=== PATIENT | male | born 1935 | race Caucasian/White ===

== ENCOUNTER 2021-04-15 10:00 | Outpatient (RCR) | payer OTHER, SELFPAY | END 2021-04-15 10:05 | disposition home or self-care (01) | LOC: PT 10:00 | PROVIDERS: Visit Provider Orthopaedic Surgery | DX: M25.561 Pain in right knee (principal); Z96.651 Presence of right artificial knee joint | CPT/HCPCS: 97010; 97014; 97110; 97112; 97140; 97163; 97164; 97530; G0283 ==

== ENCOUNTER 2021-08-14 02:58 | Emergency (ER) | payer OTHER, MEDICARE, SELFPAY ==
[2021-08-14] VITALS (12 sets, daily range): BP systolic 116–175; BP diastolic 74–101; PULSE 47–84; RESP 13–18; TEMP 36.6–36.7; O2SAT 91–98; BMI 25.8
--- NOTE | 2021-08-14 02:56 | ECG_ITS ---
APPROVED REPORT Exam: Resting ECG HR:64 bpm ECG Measurements Heart Rate 64 AXES IN 184 P 59 QRSd 125 QRS -52 QT 442 T 89 QTc 452 Conclusion SINUS RHYTHM WITH OCCASIONAL SUPRAVENTRICULAR PREMATURE COMPLEXES POSSIBLE RIGHT VENTRICULAR CONDUCTION DELAY [RSR (QR) IN V1/V2] LEFT ANTERIOR FASCICULAR BLOCK [QRS AXIS <= -45, QR IN I, RS IN II] LEFT VENTRICULAR HYPERTROPHY AND ST-T CHANGE [VOLTAGE CRITERIA PLUS ST/T ABNORMALITY] POSSIBLE SEPTAL MYOCARDIAL INFARCTION , OF INDETERMINATE AGE [30 ms Q WAVE IN V1/V2] ABNORMAL ECG UNCONFIRMED REPORT Electronically signed by : John Ann MD 08/20/2021 18:07:45
--- NOTE | 2021-08-14 03:01 | HMH.EDGENADL ---
ED Disposition Clinical Impression: NSTEMI (non-ST elevated myocardial infarction) Disposition: [facility] Condition on Discharge: Good Referrals: William Ace [Primary Care Provider] - - Critical Care Critical Care Time: No Attestation: On , the high probability of a clinically significant, sudden or life threatening deterioration of the following system(s) required my full and direct attention, intervention and personal management. The time I documented below is in addition to time spent performing reported procedures but includes the following listed in this critical care notation. Medical Decision Making - Medical Records Medical records reviewed: Yes: I reviewed the patient's medical records. - Tejinder Inquiry Pt receiving controlled substance: No Vital Signs: 08/14/21 02:58 08/14/21 03:30 08/14/21 04:03 Temperature 98.0 F Temperature Source Oral Pulse Rate 61 47 L Pulse Rate [Right] 67 Respiratory Rate 18 15 Blood Pressure 147/83 H 141/74 H Blood Pressure [Right Arm] 144/76 H Blood Pressure Mean [Right Arm] 98 02 Sat by Pulse Oximetry 98 91 L 97 08/14/21 04:35 Temperature Temperature Source Pulse Rate 68 Pulse Rate [Right] Respiratory Rate Blood Pressure 140/95 H Blood Pressure [Right Arm] Blood Pressure Mean [Right Arm] 02 Sat by Pulse Oximetry 95 - Lab Data Lab Results 08/14/21 02:58: WBC 6.2, RBC 4.20 L, Hgb 13.8 L, Hct 39.8 L, MCV 94.6 H, MCH 32.9 H, MCHC 34.8, RDW 13.8, Plt Count 200, MPV 9.6, Neut % (Auto) 47.8, Lymph % (Auto) 37.8, [place] % (Auto) 9.0, Eos % (Auto) 4.4, Baso % (Auto) 1.0, Neut # (Auto) 3.0, Lymph # (Auto) 2.3, [place] # (Auto) 0.6, Eos # (Auto) 0.3, Baso # (Auto) 0.1 08/14/21 02:58: Sodium 135 L, Potassium 3.8, Chloride 100, Carbon Dioxide 27, Anion Gap 11.8, BUN 22 H, Creatinine 1.10, Estimated Creat Clear 59, Estimated GFR 64, Est GFR ( Amer) 77, Glucose 120 H, Calcium 9.2, Troponin I < 0.01 08/14/21 02:58: D-Dimer 0.92 H 08/14/21 02:58: PT 11.7, INR 1.04 08/14/21 05:45: Troponin I 1.21 H Result diagrams: 08/14/21 02:58 08/14/21 02:58 Orders (Tests/Meds): ED MEDICATIONS Generic Name Dose Route Start Last Admin Trade Name Freq PRN Reason Stop Dose Admin Heparin Sodium/Dextrose 500 mls @ 20 mls/hr 08/14/21 06:30 Heparin 25,000 Units In D5w 500ml Premix IV 09/13/21 06:29 .Q25H JAYESH 1,000 UNITS/HR Discontinued Medications Generic Name Dose Route Start Last Admin Trade Name Freq PRN Reason Stop Dose Admin Acetaminophen 1,000 mg 08/14/21 04:09 08/14/21 04:19 Acetaminophen 500mg Tab PO 08/14/21 04:10 1,000 mg ONCE ONE Administration Aspirin 162 mg 08/14/21 03:04 08/14/21 03:08 Aspirin 81mg Chewable Tablet PO 08/14/21 03:05 162 mg ONCE ONE Administration Belladonna Alkaloids 60 ml 08/14/21 03:08 08/14/21 03:17 Gi Cocktail 60ml Udc PO 08/14/21 03:09 60 ml ONCE ONE Administration Clopidogrel Bisulfate 300 mg 08/14/21 06:26 08/14/21 06:36 Clopidogrel 300mg Tablet PO 08/14/21 06:27 300 mg ONCE ONE Administration Nitroglycerin 0.4 mg 08/14/21 03:04 Nitroglycerin 0.4mg Sl Tablet SL 08/14/21 03:05 ONCE ONE Simethicone 160 mg 08/14/21 04:07 08/14/21 04:19 Simethicone 80mg Chewable Tablet PO 08/14/21 04:08 160 mg ONCE ONE Administration ORDERS Category Date Time Status Rapid PCR Covid and Flu A/B Stat Lab 08/14/21 07:04 Ordered Troponin I Q3H Lab 08/14/21 09:15 Ordered - Radiology Data #1 Image Reviewed: Yes I have reviewed radiologist's interpretation Preliminary Findings: Normal/NAD Patient: Silvano Vo MR#: [id number] : 1935 Acct:[id number] Age/Sex: 85 / M ADM Date: 08/14/21 Loc: ER Attending Dr: Ordering Physician: Jeremy Judge MD Date of Service: 08/14/21 Procedure(s): XR chest 2V Accession Number(s): [id number] cc: Provider,R
--- NOTE | 2021-08-14 03:04 | XR_ITS ---
PROCEDURE INFORMATION: Exam: XR Chest Exam date and time: 08/14/2021 3:05 AM Age: 85 years old Clinical indication: Pain; Chest pressure; Additional info: Cp TECHNIQUE: Imaging protocol: XR of the chest. Views: 2 views. COMPARISON: No relevant prior studies available. FINDINGS: Lungs: Streaky linear opacities are noted in each lung, potentially scarring although minor atelectasis could have this appearance. No airspace disease. Pleural spaces: Unremarkable. No pleural effusion. No pneumothorax. Heart/Mediastinum: Unremarkable. No cardiomegaly. Vasculature: Tortuous aorta. Bones/joints: Unremarkable. IMPRESSION: Nonspecific linear opacities could reflect minor atelectasis or scarring. No other abnormality perceived.
--- NOTE | 2021-08-14 03:12 | PC.NURSE ---
[facility], s[facility]w supervisor [employer] Lyn, to request cardiac hx, med list, recent md note, and ekg's.
[2021-08-14 03:14] LABS: Basophils # 0.1 K/mm3 (0-0.2); Eosinophils # 0.3 K/mm3 (0.0-0.4); Eosinophils % 4.4 % (0.1-12.0); Hematocrit 39.8 % (42.0-52.0); Hemoglobin 13.8 g/dL (14.1-18.0); Lymphocytes # 2.3 K/mm3 (0.7-4.5); Lymphocytes % 37.8 % (10-50); Mean Corpuscular HGB Conc 34.8 g/dL (31.8-35.4); Mean Corpuscular Hemoglobin 32.9 pg (27.0-31.2); Mean Corpuscular Volume 94.6 fl (80-94); Mean Platelet Volume 9.6 fl (7.4-10.4); Monocytes # 0.6 K/mm3 (0.1-1.0); Neutrophils % 47.8 % (37.0-80.0); Platelet Count 200 K/mm3 (142-424); Red Cell Distribution Width 13.8 % (11.5-17.5); White Blood Count 6.2 K/mm3 (4.8-10.8)
[2021-08-14 03:18] LABS: Anion Gap 11.8 mEq/L (5-15); Blood Urea Nitrogen 22 mg/dl (9-20); Calcium 9.2 mg/dl (8.4-10.2); Carbon Dioxide 27 mmol/L (22.0-30.0); Chloride 100 mmol/L (98-107); Creatinine Clearance Estimated 59 mL/min (50-200); Estimated Glomerular Filt Rate 64 ml/min (>60); GFR (African American) 77 ML/MIN (>60); Glucose 120 mg/dl (74-100); Potassium 3.8 mmoL/L (3.5-5.1); Sodium 135 mmol/L (136-145)
[2021-08-14 03:24] LABS: D-Dimer 0.92 ug/mL (0.0-0.5)
[2021-08-14 03:36] LABS: Troponin I < 0.01 ng/ml (0.00-0.034)
[2021-08-14 06:19] LABS: Troponin I 1.21 ng/ml (0.00-0.034)
--- NOTE | 2021-08-14 06:19 | PC.NURSE ---
notified MD of elevated trop 1.21
--- NOTE | 2021-08-14 06:25 | PC.NURSE ---
Dr. Soares paged and on phone with ED at this time
--- NOTE | 2021-08-14 06:36 | PC.NURSE ---
[facility] to [facility] for bed [facility],awaiting return call
[2021-08-14 06:48] LABS: INR 1.04 (0.9-1.1); Prothrombin Time 11.7 seconds (10.1-12.5)
[2021-08-14 07:15] LABS: Coronavirus 19, PCR Not Detected (NotDetected); Influenza A, PCR Not Detected (NotDetected); Influenza B, PCR Not Detected (NotDetected)
--- NOTE | 2021-08-14 07:35 | PC.NURSE ---
[facility] returned call and [facility] accept pt and will give a bed assignment pending covid test results
--- NOTE | 2021-08-14 07:42 | PC.NURSE ---
spoke with pt and and updated them on POC [facility] the [facility]
--- NOTE | 2021-08-14 07:44 | PC.NURSE ---
[facility] called with room assignment
[2021-08-14 07:48] LABS: POC Glucose,Bedside 107 (70-110)
--- NOTE | 2021-08-14 08:02 | PC.NURSE ---
[facility] notified of transfer to [facility]
--- NOTE | 2021-08-14 08:05 | PC.NURSE ---
called report to the [facility]
--- NOTE | 2021-08-14 08:31 | PC.NURSE ---
ems at the bedside to transport [facility] to the [facility]
== END 2021-08-14 08:46 ==
PROVIDERS: Emergency Provider Student in an Organized Health Care Education/Training Program; PCP Internal Medicine
DX: R07.9 Chest pain, unspecified (principal); Z79.899 Other long term (current) drug therapy; Z20.822 Contact with and (suspected) exposure to COVID-19
CPT/HCPCS: 71046; 80048; 82962; 84484; 85025; 85378; 85610; 93005; 96374; 99285; C9803; U0003; U0005

== ENCOUNTER 2021-08-26 17:35 | Emergency (ER) | payer MEDICARE, OTHER, SELFPAY ==
[2021-08-26 17:37] VITALS: BP 154/86; PULSE 61; RESP 16; TEMP 36.6; O2SAT 98; BMI 26.3
--- NOTE | 2021-08-26 17:47 | PC.NURSE ---
ER at ; family at
[2021-08-26 18:00] VITALS: BP 164/96; PULSE 59; O2SAT 98
--- NOTE | 2021-08-26 18:00 | PC.NURSE ---
pt holding pressure family at bedside
--- NOTE | 2021-08-26 18:01 | HMH.EDDENT ---
ED Disposition Clinical Impression: Puncture wound Disposition: Home, Self-Care Condition on Discharge: Good Additional Instructions: follow up pcp, return for worse Prescriptions: Cefdinir [Omnicef 300mg Capsule] 300 mg PO BID #20 cap Transmission Status: Pending to [id number] Referrals: Provider,Referral, [Primary Care Provider] - - Critical Care Critical Care Time: No Attestation: On , the high probability of a clinically significant, sudden or life threatening deterioration of the following system(s) required my full and direct attention, intervention and personal management. The time I documented below is in addition to time spent performing reported procedures but includes the following listed in this critical care notation. Medical Decision Making - Medical Records Medical records reviewed: Yes: I reviewed the patient's medical records. - Tejinder Inquiry Pt receiving controlled substance: No Vital Signs: 08/26/21 17:37 08/26/21 18:00 08/26/21 18:30 Temperature 98 F Temperature Source Oral Pulse Rate 59 L 67 Pulse Rate [Radial] 61 Respiratory Rate 16 Blood Pressure 164/96 H 167/89 H Blood Pressure [Right Arm] 154/86 H Blood Pressure Mean 118 115 Blood Pressure Mean [Right Arm] 108 Blood Pressure Position [Right Arm] Sitting 02 Sat by Pulse Oximetry 98 98 99 Oxygen Delivery Method Room Air Medical Decision Narrative: bleeidng controlled with lido/epi injection and pressure rebleedingg 5-0absorbing plain gut x2 stitch placed Dental HPI - General Chief complaint: Dental/Oral Stated complaint: blood thinner, Cut mouth bleeding Time Seen by Provider: 08/26/21 18:01 Mode of Arrival: Ambulatory Limitations: No Limitations Description of Symptoms (Recalled from ER Triage Doc. by RN): pt states he bit his tongue approx 1 1/2 hrs ago and is unable to get it to stop bleeding. pt just started on 2 different blood thinners 1 week ago. - History of Present Illness HPI Narrative: bit tongue, bleeding on eloquis Onset (ago): minute(s) Duration: constant Severity: mild Treatment prior to arrival: none - Related Data Home Medications Medication Instructions Recorded Confirmed Finasteride [Proscar] 5 mg PO DAILY 08/14/21 08/14/21 Levothyroxine Sodium [Synthroid 137 mcg PO DAILY 08/14/21 08/14/21 137mcg (0.137mg) tablet] Terazosin HCl 10 mg PO BID 08/14/21 08/14/21 dilTIAZem HCl [Diltiazem 180mg 180 mg PO DAILY 08/14/21 08/14/21 24Hr ER Cap] Previous Rx's Medication Instructions Recorded Cefdinir [Omnicef 300mg Capsule] 300 mg PO BID #20 cap 08/26/21 Allergies Allergy/AdvReac Type Severity Reaction Status Date / Time No Known Allergies Allergy Unverified 02/21/17 14:15 [facility] History - Hepatitis A Screen Attestation statement:: This patient has been screened for Hepatitis A risk factors. ROS Obtained: Yes All systems reviewed & no additional complaints Physical Exam - General General appearance: alert, in no apparent distress - Head Head exam: atraumatic, normocephalic - Eye Eye exam: Present: normal appearance, PERRL, EOMI - ENT ENT exam: Present: other (puncture wound tongue with mild bleeding) - Respiratory Respiratory exam: Absent: respiratory distress, wheezes, stridor - Cardiovascular Cardiovascular exam: Present: regular rate, normal rhythm. Absent: bradycardia, tachycardia - Neurological Exam Neurological exam: Present: alert, oriented X3, CN II-XII intact - Skin Skin exam: Present: warm, normal color
[2021-08-26 18:30] VITALS: BP 167/89; PULSE 67; O2SAT 99
--- NOTE | 2021-08-26 18:58 | PC.NURSE ---
family at bedside
--- NOTE | 2021-08-26 19:06 | PC.NURSE ---
no active bleeding noted
[2021-08-26 19:21] VITALS: BP 130/83; PULSE 75; RESP 16; TEMP 36.6; O2SAT 98
== END 2021-08-26 19:23 | disposition home or self-care (01) ==
LOC: ER 18:10
PROVIDERS: Emergency Provider Emergency Medicine
DX: S01.532A Puncture wound without foreign body of oral cavity, initial encounter (principal)
CPT/HCPCS: 99282

== ENCOUNTER 2023-03-12 10:10 | Emergency (ER) | payer MEDICARE, OTHER, SELFPAY ==
[2023-03-12 10:40] VITALS: BP 138/84; PULSE 73; RESP 19; TEMP 36.7; O2SAT 97; BMI 28.3
--- NOTE | 2023-03-12 10:58 | EXP.UTC ---
Discharge Plan Disposition Patient Disposition: Home, Self-Care Condition: Good Prescriptions Prescriptions: New cefdinir 300 mg capsule 300 mg PO BID Qty: 20 0RF guaifenesin [Mucinex] 600 mg tablet extended release 12hr 600 mg PO BID PRN (Reason: cough) Qty: 20 0RF No Action cefdinir 300 MG capsule 300 mg PO BID Qty: 20 0RF levothyroxine 137 MCG tablet 137 mcg PO DAILY diltiazem HCl 180 MG capsule,extended release 24hr 180 mg PO DAILY terazosin 10 MG capsule 10 mg PO BID finasteride 5 MG tablet 5 mg PO DAILY Referrals Follow up/Referrals: Provider,Referral, MD [Primary Care Provider] - See instructions Activity Restrictions/Add. Instructions Additional Instructions/Restrictions: Start antibiotic today. Be sure to complete entire prescription even if feeling better Monitor temp. Tylenol every 4 hours as needed and / or ibuprofen every 6 hours as needed ( As long as your primary care physician has told you that it ok to take both. For fever/aches/pains ER if no less than 101 despite Tylenol or Motrin Humidifier/vaporizer or hot steamy shower Inhaler every 4-6 hours as needed like we discussed. If unsure how to use it, ask pharmacist to demonstrate how. Should help open airways and improve cough,wheezing, and shortness of breath Mucinex for your cough Be sure to drink lots of water. Follow up IMMEDIATELY for new or worsening of symptoms OR no noticeable improvement over the next 48-72 hours. 911 immediately for any life threatening symptoms such as chest pain or difficulty breathing Clinical Impressions Clinical Impression: Bronchitis Sinusitis Qualifiers: Sinusitis location: unspecified location Chronicity: unspecified Qualified Code(s): J32.9 - Chronic sinusitis, unspecified Instructions Patient Instructions: DI for Sinusitis, Acute Bronchitis Discharge ED Provider: Miroslava Christensen [facility] General Stated complaint: cough, congestion Mode of Arrival: Ambulatory Source of Information: Patient Limitations: No Limitations Time Seen by Provider: 03/12/23 11:03 Description of Symptoms (Recalled from Triage Doc. by RN): PATIENT C/O CONGESTION AND PRODUCTIVE COUGH X 1 WEEK HEENT Symptoms (Recalled from RN notes): Yes Resp Symptoms (Recalled from RN notes): Yes Skin Symptoms (Recalled from RN notes): No MS Symptoms (Recalled from RN notes): No Functional Status (Recalled from RN notes): WNL History of Present Illness Provider Complaint: Patient states that he started about a week ago had nasty drainage in the back of his throat and feels like it is trying to move into his chest States that he is coughing stuff up at times and everytime it is a different color States that he has been hoarse so today when he wasnt feeling any better he felt like he may need some antibiotics so he came in States that he is not allergic to anything but steriods makes him nervous and antihistamines he cant urinate so doesnt want those Related Data Home Medications Medication Instructions Recorded Confirmed diltiazem HCl 180 mg 180 mg PO DAILY High blood pressure 08/14/21 08/14/21 capsule,extended release 24 hr finasteride 5 mg tablet 5 mg PO DAILY prostate 08/14/21 08/14/21 levothyroxine 137 mcg tablet 137 mcg PO DAILY thyorid 08/14/21 08/14/21 terazosin 10 mg capsule 10 mg PO BID prostate 08/14/21 08/14/21 Previous Rx's Medication Instructions Recorded cefdinir 300 mg capsule 300 mg PO BID #20 caps 08/26/21 cefdinir 300 mg capsule 300 mg PO BID #20 caps 03/12/23 guaifenesin 600 mg tablet, 600 mg PO BID PRN cough #20 tabs 03/12/23 extended release 12 hr (Mucinex) Allergies Allergy/AdvReac Type Severity Reaction Status Date / Time No Known Allergies Allergy Unverified 02/21/17 14:15 Worker's Comp Is this a Worker's Comp case?: [facility] Dis[facility]: The information contained in this section may have been updated after the patient was seen, as this information can be updated by other users. Social History Smoking Status: Unknown if ever smoked alcohol intake: never current occupational status: retired and disabled Travel in the last 8 weeks: None ROS Obtained: Yes All systems reviewed & no additional complaints except as documented and Yes Systems reviewed as appropriate & no additional complaints except as documented Constitutional Constitutional: Reports system reviewed and no additional complaints, except as documented and Reports as per HPI ENT Ears, Nose, Mouth, and Throat: Reports system reviewed and no additional complaints, except as documented, Reports as per HPI, Reports sinus pain and Reports sinus pressure Cardiovascular Cardiovascular: Reports system reviewed and no additional complaints, except as documented and Reports as per HPI Respiratory Respiratory: Reports system reviewed and no additional complaints, except as documented, Reports as per HPI, Reports chest congestion and Reports cough Gastrointestinal Gastrointestingal: Reports system reviewed and no additional complaints, except as documented and as per HPI Genitourinary Male Genitourinary: Reports system reviewed and no additional complaints, except as documented and Reports as per HPI Physical Exam General General appearance: alert and in no apparent distress ENT ENT exam: Present mucous membranes moist Expanded ENT Exam Nose exam: Present sinus tenderness Throat exam: Present other (PND noted ) Respiratory Respiratory exam: Present normal lung sounds bilaterally; Absent respiratory distress or wheezes Cardiovascular Cardiovascular exam: Present regular rate, normal rhythm and normal heart sounds Neurological Exam Neurological exam: Present alert, oriented X3 and normal gait Medical Decision Making Tejinder Inquiry Pt receiving controlled substance: No Tejinder was queried for this patient: No Vital Signs: 03/12/23 10:40 Temperature 98.0 F Temperature Source Oral Pulse Rate [Left Brachial] 73 Respiratory Rate 19 Blood Pressure [Left Arm] 138/84 Blood Pressure Mean [Left Arm] 102 Blood Pressure Source [Left Arm] Automatic Cuff Blood Pressure Position [Left Arm] Sitting 02 Sat by Pulse Oximetry 97 Oxygen Delivery Method Room Air
[2023-03-12 11:21] VITALS: BP 138/84; PULSE 73; RESP 19; TEMP 36.7; O2SAT 97
== END 2023-03-12 11:24 | disposition home or self-care (01) ==
PROVIDERS: Emergency Provider Nurse Practitioner
DX: J20.9 Acute bronchitis, unspecified (principal); J01.90 Acute sinusitis, unspecified; R09.81 Nasal congestion; R09.82 Postnasal drip; R05.9 Cough, unspecified; R09.89 Other specified symptoms and signs involving the circulatory and respiratory systems
CPT/HCPCS: 99204; 99212; G0463

== ENCOUNTER 2023-11-03 13:22 | Emergency (ER) | payer MEDICARE, OTHER, SELFPAY ==
[2023-11-03] VITALS (11 sets, daily range): BP systolic 100–177; BP diastolic 70–96; PULSE 56–82; RESP 16–20; TEMP 36.8; O2SAT 93–98; BMI 26.5
--- NOTE | 2023-11-03 13:44 | ED_ITS ---
Discharge Plan Disposition Chief Complaint: Nausea/Vomiting/Diarrhea Prescriptions Prescriptions: No Action cefdinir 300 MG capsule 300 mg PO BID Qty: 20 0RF cefdinir 300 mg capsule 300 mg PO BID Qty: 20 0RF guaifenesin [Mucinex] 600 mg tablet extended release 12hr 600 mg PO BID PRN (Reason: cough) Qty: 20 0RF levothyroxine 137 MCG tablet 137 mcg PO DAILY diltiazem HCl 180 MG capsule,extended release 24hr 180 mg PO DAILY terazosin 10 MG capsule 10 mg PO BID finasteride 5 MG tablet 5 mg PO DAILY Clinical Impressions Clinical Impression: Nausea, Abdominal pain Instructions Patient Instructions: DI for Diarrhea and Traveler's Diarrhea -- Adult, DI for Diarrhea and Traveler's Diarrhea -- Child, DI for Nausea -- Adult, DI for Nausea -- Child Print Language Print Language: Armenian Discharge ED Provider: Quan Ambriz Adult HPI General Chief complaint: Nausea/Vomiting/Diarrhea Stated complaint: abd pain Time Seen by Provider: 11/03/23 13:44 Mode of Arrival: Wheelchair Source of Information: Patient Limitations: No Limitations Description of Symptoms (Recalled from ER Triage Doc. by RN): pt states he is very nauseated. pt states he began feeling bad this am. He denies pain but states his stomach is queasy and rumbling. pt denies any other symptoms. History of Present Illness HPI narrative: Silvano Vo is an 88M with a past medical history of hypertension, coronary artery disease and NSTEMI presenting to the emergency department for complaints of abdominal pain, nausea. Patient states that he developed abdominal bloating and periumbilical pain starting this morning with associated nausea. He has not had any vomiting. He states that he is not having any diarrhea and is having normal bowel movements without blood or dark stools. He states his last bowel movement was this morning. He reports that his and him ate the same meal last night and she is not sick. He states that nothing like this is ever happened before. He states that he has a history of appendectomy and hernia repairs in the past. Related Data Home Medications ?Medication ?Instructions ?Recorded ?Confirmed diltiazem HCl 180 mg 180 mg PO DAILY High blood pressure 08/14/21 08/14/21 capsule,extended release 24 hr finasteride 5 mg tablet 5 mg PO DAILY prostate 08/14/21 08/14/21 levothyroxine 137 mcg tablet 137 mcg PO DAILY thyorid 08/14/21 08/14/21 terazosin 10 mg capsule 10 mg PO BID prostate 08/14/21 08/14/21 Previous Rx's ?Medication ?Instructions ?Recorded cefdinir 300 mg capsule 300 mg PO BID #20 caps 08/26/21 cefdinir 300 mg capsule 300 mg PO BID #20 caps 03/12/23 guaifenesin 600 mg tablet, 600 mg PO BID PRN cough #20 tabs 03/12/23 extended release 12 hr (Mucinex) Allergies Allergy/AdvReac Type Severity Reaction Status Date / Time No Known Allergies Allergy Verified 11/03/23 13:35 [facility] Disclaimer: The information contained in this section may have been updated after the patient was seen, as this information can be updated by other users. Social History (Updated 03/12/23 @ 11:18 by Miroslava Christensen APRN) Smoking Status: Never smoker alcohol intake: never current occupational status: retired and disabled Travel in the last 8 weeks: None ROS Obtained: Yes Systems reviewed as appropriate & no additional complaints except as documented Physical Exam General General appearance: alert Comment: appears uncomfortable Head Head exam: atraumatic Eye Eye exam: Present normal appearance ENT ENT exam: Present normal external ear exam Neck Neck exam: Present full ROM Chest Chest inspection: Present symmetric chest wall rise Respiratory Respiratory exam: Present normal lung sounds bilaterally; Absent respiratory distress Cardiovascular Cardiovascular exam: Present regular rate and normal rhythm Abdominal Exam Abdominal exam: Present soft, distention and tenderness (perumbilical); Absent guarding, rebound or rigidity exam: Present deferred Extremities Exam Extremities exam: Present normal inspection Back Exam Back exam: Present normal inspection Neurological Exam Neurological exam: Present alert and oriented X3 Psychiatric Psychiatric exam: Present normal affect Skin Skin exam: Present warm and dry Medical Decision Making Medical Records Medical records reviewed: Yes I reviewed the patient's medical records. Tejinder Inquiry Pt receiving controlled substance: No Vital Signs: 11/03/23 13:29 11/03/23 13:30 11/03/23 14:00 Temperature 98.3 F Temperature Source Oral Pulse Rate 63 60 Pulse Rate [Left] 62 Respiratory Rate 16 Blood Pressure 164/87 H 152/83 H Blood Pressure [Right Arm] 172/96 H Blood Pressure Mean [Right Arm] 121 Blood Pressure Source [Right Arm] Automatic Cuff Blood Pressure Position [Right Arm] Sitting 02 Sat by Pulse Oximetry 97 96 96 Oxygen Delivery Method Room Air Room Air Room Air Lab Data Lab Results 11/03/23 13:33: WBC 9.1, RBC 4.14 L, Hgb 12.5 L, Hct 39.1 L, MCV 94.4 H, MCH 30.1, MCHC 31.9, RDW 14.5, Plt Count 316, MPV 8.8, Neut % (Auto) 77.3, Lymph % (Auto) 13.2, [place] % (Auto) 7.3, Eos % (Auto) 1.7, Baso % (Auto) 0.5, Neut # (Auto) 7.0, Lymph # (Auto) 1.2, [place] # (Auto) 0.7, Eos # (Auto) 0.2, Baso # (Auto) 0.0, Sodium 129 L, Potassium 4.3, Chloride 98, Carbon Dioxide 26, Anion Gap 9.3, BUN 17, Creatinine 1.00, Estimated Creat Clear 63, Estimated GFR 71, Est GFR ( Amer) 86, Glucose 120 H, Calcium 9.0, Total Bilirubin 0.8, AST 41, ALT 26, Alkaline Phosphatase 81, Total Protein 7.8, Albumin 4.4, Globulin 3.4 H, Albumin/Globulin Ratio 1.3, Lipase 48 11/03/23 13:45: Lactate 1.0 11/03/23 13:33 11/03/23 13:33 Orders (Tests/Meds): ED MEDICATIONS Generic Name Dose Route Start Last Admin Trade Name Freq PRN Reason Stop Dose Admin Sodium Chloride 10 ml 11/03/23 13:59 Sodium Chloride 0.9% 10ml Flush Syringe IV 12/03/23 13:58 NEEDED PRN Maintain IV Site Sodium Chloride 10 ml 11/03/23 14:32 11/03/23 14:32 Sodium Chloride 0.9% 10ml Syr (Rad Only) IV 12/03/23 14:31 10 ml NEEDED PRN Administration Maintain IV Site Discontinued Medications Generic Name Dose Route Start Last Admin Trade Name Freq PRN Reason Stop Dose Admin Acetaminophen 1,000 mg 11/03/23 14:07 11/03/23 14:10 Acetaminophen 500mg Tab PO 11/03/23 14:08 1,000 mg ONCE ONE Administration Lactated Ringer's 500 mls @ 999 mls/hr 11/03/23 14:17 Lactated Ringer's 500ml IV 11/03/23 14:47 .Q31M ONE Iopamidol 75 ml 11/03/23 14:32 11/03/23 14:32 Iopamidol-370 (76%);100ml Bottle IV 11/03/23 14:33 75 ml ONCE ONE Administration Morphine Sulfate 4 mg 11/03/23 13:52 11/03/23 14:17 Morphine 4mg/Ml Syringe IV 11/03/23 13:53 Not Given ONCE ONE Ondansetron HCl 4 mg 11/03/23 13:52 11/03/23 14:01 Ondansetron 4mg/2ml Vial IV 11/03/23 13:53 4 mg ONCE ONE Administration ORDERS Category Date Time Status CT abdomen pelvis w con Stat Cat Scan 11/03/23 13:52 Taken CBC w/Auto Diff [Complete Blood Count Auto Diff] Stat Lab 11/03/23 13:33 Completed CMP [Comprehensive Metabolic Panel] Stat Lab 11/03/23 13:33 Completed Hemoglobin A1C Stat Lab 11/03/23 13:59 Received Lactic Acid Stat Lab 11/03/23 13:45 Completed Lipase Stat Lab 11/03/23 13:33 Completed Trop I [Troponin I] Stat Lab 11/03/23 13:59 Received Troponin I Q3H Lab 11/03/23 18:15 Ordered Troponin I Q3H Lab 11/03/23 21:15 Ordered Urinalysis and Microscopic Stat Lab 11/03/23 13:52 Ordered Medical Decision Narrative: Silvano Vo is an 88y male with a past medical history of NSTEMI, hypertension presenting to the emergency department for complaints of periumbilical abdominal pain as well as nausea without vomiting. He reportedly has had normal bowel movements, last of which was this morning. No hematochezia, melena or diarrhea. Patient does feel that his abdomen is distended. Physical exam revealed a distended abdomen that is mildly tender in the periumbilical region without rigidity or guarding. Cardiopulmonary exam is unremarkable. The remainder of his exam is grossly unremarkable as well. Differential diagnosis includes, but is not limited to: SBO, acute cholecystitis, choledocholithiasis, viral gastritis, ACS, pancreatitis, urinary tract infection, among others. Patient's workup in the emergency department included: CBC, CMP, lipase, urinalysis, troponin, CT abdomen pelvis with IV contrast Patient's workup demonstrated no leukocytosis, mild hyponatremia of 129, electrolytes otherwise within normal limits, creatinine 1.0, glucose 120, troponin pending, lipase normal at 48. CT abdomen pelvis was interpreted by me prior to official radiology reads and demonstrated no acute intraabdominal findings. See final radiology report for details. At this time, patient's care was transferred to the oncoming physician, Dr. Gonzalez, pending official radiology reads. Patient's ultimate disposition is to be determined by the oncoming provider after reassessment, troponin, and radiology reads. He remained hemodynamically stable and was appropriate for transfer of care at this time. Critical Care Critical Care Time Critical Care Time: No
--- NOTE | 2023-11-03 13:52 | CT_ITS ---
FINAL REPORT TECHNIQUE: Postcontrast axial images through the abdomen and pelvis were performed. This study was performed with techniques to keep radiation doses as low as reasonably achievable, (ALARA). Individualized dose reduction techniques using automated exposure control or adjustment of mA and/or kV according to the patient's size were employed. CLINICAL HISTORY: periumbilical pain, distended. Concern for SBO FINDINGS: Abdomen: There is chronic scarring at the lung bases. There is mild fatty infiltration of the liver. The gallbladder is present. The spleen and pancreas are unremarkable. There is a small nodule in the left adrenal gland measuring approximately 10 mm and likely represents an adrenal adenoma. The right adrenal gland is unremarkable. The kidneys are unremarkable. Pelvis: There is extensive mucosal thickening of the ascending colon and at the ileocecal valve. There is abnormal dilation of the distal small bowel with associated bacterial overgrowth measuring 3.2 cm in diameter. There appears to be partial small bowel obstruction. The prostate is enlarged and heterogeneous measuring 7.4 cm in diameter. There are postoperative changes from inguinal hernia repair bilaterally. IMPRESSION: Abnormal mucosal thickening of the cecum, ileocecal valve and ascending colon. It is unclear if this is inflammatory or neoplastic but appears to result in a partial small bowel obstruction at the ileocecal valve. Lower endoscopy is recommended with attention to the ileocecal valve. Reviewed, Interpreted and Dictated by Pedro Pablo Perez MD Transcribed by Leesa Hernandez Authenticated and [facility]
[2023-11-03] MEDS: ONDANSETRON 4MG/2ML VIAL 4 MG IV ×2 (14:01→22:52)
[2023-11-03 14:03] LABS: Albumin Level 4.4 g/dl (3.5-5.0); Basophils % 0.5 % (0.1-2.0); Chloride 98 mmol/L (98-107); Eosinophils # 0.2 K/mm3 (0.0-0.4); Eosinophils % 1.7 % (0.1-12.0); Hematocrit 39.1 % (42.0-52.0); Hemoglobin 12.5 g/dL (14.1-18.0); Lymphocytes # 1.2 K/mm3 (0.7-4.5); Lymphocytes % 13.2 % (10-50); Mean Corpuscular HGB Conc 31.9 g/dL (31.8-35.4); Mean Corpuscular Hemoglobin 30.1 pg (27.0-31.2); Mean Corpuscular Volume 94.4 fl (80-94); Mean Platelet Volume 8.8 fl (7.4-10.4); Monocytes # 0.7 K/mm3 (0.1-1.0); Monocytes % 7.3 % (1.7-9.3); Neutrophils % 77.3 % (37.0-80.0); Platelet Count 316 K/mm3 (142-424); Potassium 4.3 mmoL/L (3.5-5.1); Red Blood Count 4.14 M/mm3 (4.60-6.20); Red Cell Distribution Width 14.5 % (11.5-17.5); Sodium 129 mmol/L (136-145); White Blood Count 9.1 K/mm3 (4.8-10.8)
[2023-11-03 14:05] LABS: Alanine Aminotransferase 26 U/L (12-78); Anion Gap 9.3 mEq/L (5-15); Aspartate Amino Transferase 41 U/L (17-59); Blood Urea Nitrogen 17 mg/dl (9-20); Carbon Dioxide 26 mmol/L (22.0-30.0); Creatinine Clearance Estimated 63 mL/min (50-200); Estimated Glomerular Filt Rate 71 ml/min (>60); GFR (African American) 86 ML/MIN (>60)
[2023-11-03 14:06] LABS: Albumin/Globulin Ratio 1.3 (1.1-1.8); Alkaline Phosphatase 81 U/L (38-126); Bilirubin,Total 0.8 mg/dl (0.2-1.3); Globulin 3.4 g/dL (1.3-3.2); Glucose 120 mg/dl (74-100); Lipase 48 U/L (23-300); Total Protein,Serum 7.8 g/dl (6.3-8.2)
[2023-11-03] MEDS: ACETAMINOPHEN 500MG TAB 1000 MG PO ×2 (14:10→22:53)
--- NOTE | 2023-11-03 14:16 | PC.NURSE ---
Pt gone to RAD via wheelchair
--- NOTE | 2023-11-03 14:27 | PC.NURSE ---
Pt returned to room from RAD
[2023-11-03] MEDS: SODIUM CHLORIDE 0.9% 10ML SYR (RAD ONLY) 10 ML IV (14:32)
[2023-11-03] MEDS: IOPAMIDOL-370 (76%);100ML BOTTLE 75 ML IV (14:32)
[2023-11-03] MEDS: RINGERS SOLUTION,LACTATED 500 ML 999 ML IV (15:00)
[2023-11-03 15:27] LABS: Microscopic, Urine URINE MICROSCOPIC (MICROSCOPIC)
[2023-11-03 15:28] LABS: Appearance,Urine CLEAR (Clear); Bilirubin,Urine Negative (Negative); Blood, Urine 1+ (Negative); Color,Urine YELLOW (Yellow); Glucose,Urine (UA) Negative (Negative); Ketones,Urine Negative (Negative); Leukocyte Esterase,Urine Negative (Negative); Nitrate,Urine Negative (Negative); Protein,Urine Negative (Negative); Urobilinogen,Urine 0.2 EU/dl (0.2)
[2023-11-03 15:33] LABS: Troponin I < 0.01 ng/ml (0.00-0.034)
[2023-11-03 15:41] LABS: RBC,Urine 20-50 #/hpf (0-3); Squamous Epithelial Cell,Urine Occasional #/hpf (0-5); WBC,Urine Occasional #/hpf (0-3)
--- NOTE | 2023-11-03 15:43 | PC.NURSE ---
Rounded on pt. Water provided. Updated on current POC.
--- NOTE | 2023-11-03 15:46 | PC.NURSE ---
paged for er md
--- NOTE | 2023-11-03 15:49 | PC.NURSE ---
sunil ventura speaking with
--- NOTE | 2023-11-03 16:02 | PC.NURSE ---
[facility]
[2023-11-03 16:08] LABS: Hemoglobin A1C 6.3 % (4.0-6.0)
--- NOTE | 2023-11-03 16:25 | PC.NURSE ---
[facility] called back and stated that [facility] in surgery. They have to talk to him to accept and will call back as soon as they talk to him.
--- NOTE | 2023-11-03 18:19 | PC.NURSE ---
[facility] called to let us know as soon as the general doctor for rn shift mgr call back she would call back with him to speak with
--- NOTE | 2023-11-03 18:28 | PC.NURSE ---
[facility]
--- NOTE | 2023-11-03 18:29 | PC.NURSE ---
ON PHONE WITH [facility]
--- NOTE | 2023-11-03 19:52 | PC.NURSE ---
called [facility] for a update about [facility]. they informed me that they are still waiting on the room number and would call us as soon as they recieved it.
--- NOTE | 2023-11-03 20:28 | PC.NURSE ---
rounded on pt, pt asked about the transfer to [facility]. i informed them that i did call them for an update and we are awaiting a call back from them.
--- NOTE | 2023-11-03 20:45 | PC.NURSE ---
Awaiting a call from [facility] for a bed assignment. We contacted [facility] but no room assignment as of yet.
--- NOTE | 2023-11-03 20:52 | PC.NURSE ---
contacted the [facility] again, they still did not have a bed assignment for him. they asked if we could covid swab him and that has been sent to lab. awaiting a call back when they get a bed.
[2023-11-03 20:59] LABS: Coronavirus 19, PCR Not Detected (NotDetected); Influenza A, PCR Not Detected (NotDetected); Influenza B, PCR Not Detected (NotDetected)
--- NOTE | 2023-11-03 21:27 | PC.NURSE ---
Spoke to AOD at [facility] to let them know Covid test is negative. They will call back with a bed
--- NOTE | 2023-11-03 22:22 | PC.NURSE ---
Report called to Leela ALMANZAR at [facility].
[2023-11-03] MEDS: KETOROLAC 30MG/ML VIAL 15 MG IV (22:52)
== END 2023-11-03 22:58 | disposition critical access hospital (66) ==
PROVIDERS: Student in an Organized Health Care Education/Training Program; Emergency Provider Emergency Medicine
DX: R10.33 Periumbilical pain (principal); R11.0 Nausea; R14.0 Abdominal distension (gaseous); E87.1 Hypo-osmolality and hyponatremia
CPT/HCPCS: 74177; 80053; 81001; 83036; 83605; 83690; 84484; 85025; 87636; 96374; 96375; 99285; J1885; J2270; J2405; J7120; Q9967